=== PATIENT | female | born 1990 | race Caucasian/White ===

== ENCOUNTER 2018-10-17 09:50 | Day surgery (SDC) | payer OTHER ==
[~2018-10-17 09:50] MED LIST: Lactated Ringers 1,000 ML IV SCH; Lidocaine 1%/Sod Bicarbonate in NS 8.4% 1 ML Syringe IDERM PRN; Sodium Chloride 0.9% 10 ML Syringe FLUSH PRN
--- NOTE | 2018-10-17 10:20 | PCM.PREANE ---
Preanesthetic Assessment - Anesthesia/Transfusion/Family Hx Anesthesia History: Prior Anesthesia Without Reaction Family History of Anesthesia Reaction: No Transfusion History: No Prior Transfusion(s) - Review of Systems General: No Symptoms, Other (chronic pain, on naltrexone, ) Pulmonary: Other (smoker, quit 1 year) Gastrointestinal: Abdominal Pain, Hematochezia Neurological: No Symptoms Other: Reports: Diabetes, Depression - Physical Assessment NPO Status Date: 10/16/18 NPO Status Time: 23:00 Pulse: 67 O2 Sat by Pulse Oximetry: 94 Respiratory Rate: 16 Blood Pressure: 157/93 Weight: 111 kg ASA Class: 2 Mental Status: Alert & Oriented x3 Dentition: Reports: Normal Dentition Thyro-Mental Finger Breadths: 3 Mouth Opening Finger Breadths: 3 ROM/Head Extension: Full Lungs: Clear to Auscultation, Normal Respiratory Effort Cardiovascular: Regular Rate, Regular Rhythm - Allergies Allergies/Adverse Reactions: Allergies Allergy/AdvReac Type Severity Reaction Status Date / Time acetaminophen [From Vicodin] Allergy Other Verified 10/16/18 13:36 azithromycin [From Zithromax] Allergy Diarrhea Verified 10/16/18 13:36 esomeprazole magnesium Allergy Acid Reflux Verified 10/16/18 13:36 [From Nexium] hydrocodone [From Vicodin] Allergy Other Verified 10/16/18 13:36 - Blood Blood Available: No Product(s) Available: None - Anesthesia Plan Pre-Op Medication Ordered: None - Acknowledgements Anesthesia Type Planned: MAC Pt an Appropriate Candidate for the Planned Anesthesia: Yes Alternatives and Risks of Anesthesia Discussed w Pt/Guardian: Yes Pt/Guardian Understands and Agrees with Anesthesia Plan: Yes PreAnesthesia Questionnaire Cardiovascular History: Reports: None Respiratory History: Reports: None Genitourinary History: Reports: Other (See Below) Other Genitourinary History: cervix dysplasia AIDS COUNSELOR History: Reports: Endometriosis Neurological History: Reports: None Psychiatric History: Reports: Other (See Below) Other Psychiatric History: chronic pain syndrome Endocrine/Metabolic History: Reports: None Hematologic History: Reports: None Immunologic History: Reports: None Oncologic (Cancer) History: Reports: None Dermatologic History: Reports: Other (See Below) Other Dermatologic History: hidradenitis suppurativa - Past Surgical History Head Surgeries/Procedures: Reports: None HEENT Surgical History: Reports: Oral Surgery, Tonsillectomy Cardiovascular Surgical History: Reports: None Respiratory Surgical History: Reports: None GI Surgical History: Reports: EGD, Other (See Below) Other GI Surgeries/Procedures: gastroscopy Female Surgical History: Reports: LEEP Male Surgical History: Reports: None Endocrine Surgical History: Reports: None Neurological Surgical History: Reports: None Musculoskeletal Surgical History: Reports: Other (See Below) Other Musculoskeletal Surgeries/Procedures:: ganglion cyst Oncologic Surgical History: Reports: None Dermatological Surgical History: Reports: None - SUBSTANCE USE Smoking Status *Q: Former Smoker Recreational Drug Use History: No - HOME MEDS Home Medications: Home Meds Acetaminophen [Tylenol Extra Strength] 1 - 2 tab PO Q6H PRN 10/16/18 [History] Levonorgestrel-Ethin Estradiol [Altavera-28 Tablet] 1 tab PO DAILY 10/16/18 [ History] Naltrexone 1.5 mg PO DAILY 10/16/18 [History] Spironolactone [Aldactone] 25 mg PO BID 10/16/18 [History] metFORMIN [Glucophage] 2,000 mg PO DAILY 10/16/18 [History] - CURRENT (IN HOUSE) MEDS Current Meds: Current Medications Lactated Ringer's (Ringers, Lactated) 1,000 mls @ 125 mls/hr IV ASDIRECTED MARGARET Lidocaine/Sodium Bicarbonate (Buffered Lidocaine 1% In Ns 8.4%) 0.25 ml IDERM ONETIME PRN PRN Reason: Prior to IV Start Sodium Chloride (Saline Flush) 10 ml FLUSH ASDIRECTED PRN PRN Reason: Keep Vein Open
[2018-10-17] MEDS ORDERED: Propofol 200 MG/20 ML SDV ONE ×2 (10:28→11:10)
[2018-10-17] MEDS ORDERED: Midazolam 1 MG/ML 2 ML SDV ONE ×2 (10:28→10:44)
--- NOTE | 2018-10-17 11:23 | PCM.OPNOTE ---
- General Post-Op/Procedure Note Date of Surgery/Procedure: 10/17/18 Operative Procedure(s): diagnostic colonoscopy with biopsy and polypectomy, and hemorrhoid banding Findings: 1. Ascending colon polyp 2. Edematous mucosa in the descending and sigmoid colon 3. Splenic flexure polyp 4. Internal hemorrhoids Pre Op Diagnosis: chronic diarrhea and hematochezia Post-Op Diagnosis: same Anesthesia Technique: MAC Primary Surgeon: Mirtha Joy Anesthesia Provider: Abi Bueno Pathology: 1. Ascending colon polyp 2. Transverse colon biopsies 3. Splenic flexure polyp 4. Descending colon biopsies 5. Sigmoid colon biopsies 6. Rectum biopsies Fluid Replacement, Intraop: 1,000 Output, Urine Amount: 0 EBL in mLs: 0 Complications: None apparent Condition: Good
--- NOTE | 2018-10-17 11:29 | PCM48HPAN ---
Post Anesthesia Note - EVALUATION WITHIN 48HRS OF ANESTHETIC Vital Signs in Normal Range: Yes Patient Participated in Evaluation: Yes Respiratory Function Stable: Yes Airway Patent: Yes Cardiovascular Function Stable: Yes Hydration Status Stable: Yes Pain Control Satisfactory: Yes Nausea and Vomiting Control Satisfactory: Yes Mental Status Recovered: Yes Pulse Rate: 78 SaO2: 98 Resp Rate: 16 Temperature: 36.2 C Blood Pressure: 141/84
[2018-10-17 12:56] VITALS: BP 151/93
--- NOTE | 2018-10-17 16:31 | PCM.PRNOTE ---
- Free Text/Narrative Note: Operative Report Date of Surgery/Procedure: October 17, 2018 Operative Procedure: diagnostic colonoscopy with biopsy and polypectomy, and hemorrhoid banding Pre Op Diagnosis: Chronic diarrhea and hematochezia Post-Op Diagnosis: Same Surgeon: Mirtha Joy Anesthesia Technique: MAC Anesthesia Provider: Abi Bueno CRNA IV Fluid Replacement, Intraop: 1000 cc Output, Urine Amount: 0cc EBL : 0cc Findings: 1. Ascending colon polyp 2. Edematous mucosa in the descending and sigmoid colon 3. Splenic flexure polyp 4. Internal hemorrhoids Specimens: 1. Ascending colon polyp 2. Transverse colon biopsies 3. Splenic flexure polyp 4. Descending colon biopsies 5. Sigmoid colon biopsies 6. Rectum biopsies Indication: The patient is a 28 year-old 80 who presented to the outpatient clinic requesting colonoscopy. The patient has a history of chronic diarrhea as well as recent hematochezia We discussed the procedure of a diagnostic colonoscopy including the polypectomy and biopsy. We also discussed the possibility of doing hemorrhoid banding. Risks of bleeding and perforation were discussed, the patient understood and wished to proceed. Written and consent was obtained Description of the procedure: The patient was brought to the endoscopy suite and placed in the left lateral decubitus position. Appropriate monitors were applied. The patient was given MAC anesthesia. An anorectal examination was performed, revealing an internal hemorrhoid, grade 1. The scope was placed into the rectum and advanced to cecum with minimal difficulty requiring no additional maneuvers. The patients cecum was entered, and the ileocecal valve and appendiceal orifice were identified and normal. At this point, the scope was withdrawn, paying careful attention to the mucosa. The patient had excellent bowel prep, allowing for visualization of 90-95 % of the mucosa. Polyps in the splenic flexure and descending colon were noted, these were removed using cold biopsy forceps. Edema of the mucosa was noted in the descending and sigmoid colon. Due to her chronic diarrhea, biopsies were taken of the mucosa in the transverse colon, descending colon, sigmoid and rectum. These tissue biopsies were taken using cold biopsy forceps. In the rectum, the scope was retroflexed and no abnormalities were noted, except for some hemorrhoidal tissue. The scope was placed back in the lumen and the excess air was aspirated. We then proceeded to insert the anoscope. Two prominent hemorrhoid cushions were appreciated. Rubber bands were placed in 2 locations. The anoscope was then withdrawn. The patient was awakened from MAC anesthesia. The patient tolerated the procedure well. Complications: none apparent Condition: Good, transported to PACU in stable condition Mirtha Joy MD General Surgery
== END 2018-10-17 12:08 | disposition home or self-care (01) ==
LOC: JD.SDS 09:50
PROVIDERS: ATTEND Surgery
DX: K52.9 Noninfective gastroenteritis and colitis, unspecified (principal); K92.1 Melena; K63.5 Polyp of colon; K64.8 Other hemorrhoids; K21.9 Gastro-esophageal reflux disease without esophagitis; E28.2 Polycystic ovarian syndrome; Z79.84 Long term (current) use of oral hypoglycemic drugs; Z79.899 Other long term (current) drug therapy; Z88.1 Allergy status to other antibiotic agents; Z88.5 Allergy status to narcotic agent; Z88.6 Allergy status to analgesic agent; Z87.891 Personal history of nicotine dependence
CPT/HCPCS: 45380; 45398; 81025; J2250; J2704; J7120; 00811

== ENCOUNTER 2019-09-18 13:38 | Emergency (ER) | payer OTHER ==
[2019-09-18 13:50] VITALS: BP 116/81; PULSE 85
--- NOTE | 2019-09-18 14:02 | EDM.PDOC ---
ED HPI GENERAL MEDICAL PROBLEM - General Chief Complaint: Lower Extremity Injury/Pain Stated Complaint: L LEG SWELLING/PAIN Time Seen by Provider: 09/18/19 13:57 Source of Information: Reports: Patient, Family (spouse) History Limitations: Reports: No Limitations - History of Present Illness INITIAL COMMENTS - FREE TEXT/NARRATIVE: 29-year-old female presents the ED with painful left calf. She reports that she first noticed discomfort in the posterior left calf about mid calf 5 days ago. As the week is gone on the pain is gradually increased to the point that she is walking with a definitive limp. Pain on plantarflexion and on dorsiflexion of the ankle. No recent long rides in no past history of DVT. She quit smoking a year ago. She is on oral contraceptive pill for about one year. Pain radiates up slightly along the posterior left thigh. Recent injuries that would've later up. No recent falls or strains to her knowledge. Onset: Gradual Onset Date: 09/14/19 Duration: Day(s):, Constant, Getting Worse, Intermittent (Made worse by walking or weightbearing) Location: Reports: Lower Extremity, Left Quality: Reports: Ache, Throbbing Severity: Moderate Improves with: Reports: Rest Worsens with: Reports: Movement (And weightbearing) Context: Denies: Activity, Exercise, Lifting, Sick Contact, Trauma, Other Associated Symptoms: Reports: No Other Symptoms, Other (Denies any sharp stabbing pleuritic chest pain or shortness of breath. O2 sats are reported heart rate 95%.) Treatments PORTFOLIO ANALYST: Reports: Other (see below) (None.) - Related Data Allergies Allergy/AdvReac Type Severity Reaction Status Date / Time acetaminophen [From Vicodin] Allergy Other Verified 10/16/18 13:36 azithromycin [From Zithromax] Allergy Diarrhea Verified 10/16/18 13:36 esomeprazole magnesium Allergy Acid Reflux Verified 10/16/18 13:36 [From Nexium] hydrocodone [From Vicodin] Allergy Other Verified 10/16/18 13:36 Home Meds: Home Meds Spironolactone [Aldactone] 25 mg PO BID 10/16/18 [History] Levonorgestrel-Ethinyl Estradiol 09/18/19 [History] Rivaroxaban [Xarelto] 15 mg PO BID #42 tablet 09/18/19 [Rx] Past Medical History Cardiovascular History: Reports: None Respiratory History: Reports: None Genitourinary History: Reports: Other (See Below) Other Genitourinary History: cervix dysplasia MEDICAL LANGUAGE SPECIALIST History: Reports: Endometriosis Neurological History: Reports: None Psychiatric History: Reports: Other (See Below) Other Psychiatric History: chronic pain syndrome Endocrine/Metabolic History: Reports: None Hematologic History: Reports: None Immunologic History: Reports: None Oncologic (Cancer) History: Reports: None Dermatologic History: Reports: Other (See Below) Other Dermatologic History: hidradenitis suppurativa - Past Surgical History Head Surgeries/Procedures: Reports: None HEENT Surgical History: Reports: Oral Surgery, Tonsillectomy Cardiovascular Surgical History: Reports: None Respiratory Surgical History: Reports: None GI Surgical History: Reports: Colonoscopy, EGD, Other (See Below) Other GI Surgeries/Procedures: gastroscopy, LEEP, colposcopy Female Surgical History: Reports: LEEP Endocrine Surgical History: Reports: None Neurological Surgical History: Reports: None Musculoskeletal Surgical History: Reports: Other (See Below) Other Musculoskeletal Surgeries/Procedures:: ganglion cyst Oncologic Surgical History: Reports: None Dermatological Surgical History: Reports: None Social & Family History - Family History Family Medical History: Noncontributory - Tobacco Use Smoking Status *Q: Former Smoker Used Tobacco, but Quit: Yes Month/Year Tobacco Last Used: 09/2018 - Caffeine Use Caffeine Use: Reports: Coffee, Soda, Tea - Living Situation & Occupation Living situation: Reports: Single Occupation: Employed Review of Systems - Review of Systems Review Of Systems: See Below Constitutional: Reports: No Symptoms Eyes: Reports: No Symptoms Ears: Reports: No Symptoms Nose: Reports: No Symptoms Mouth/Throat: Reports: No Symptoms Respiratory: Reports: No Symptoms Cardiovascular: Reports: No Symptoms GI/Abdominal: Reports: No Symptoms Genitourinary: Reports: No Symptoms Musculoskeletal: Reports: Other (Pain and minimal swelling left) Skin: Reports: No Symptoms ( lower extremity.) Neurological: Reports: No Symptoms Psychiatric: Reports: No Symptoms ED EXAM, GENERAL - Physical Exam Exam: See Below Exam Limited By: No Limitations General Appearance: Alert, WD/WN, No Apparent Distress, Other (Temperatures 36.1. Pulse 85 in sinus. Respiratory is 16 with O2 sats reportedly at 95%. Is a little lower than I would expect for age 29.) Eye Exam: Bilateral Eye: Normal Inspection Respiratory/Chest: No Respiratory Distress, Lungs Clear, Normal Breath Sounds, No Accessory Muscle Use, Chest Non-Tender Cardiovascular: Normal Peripheral Pulses, Regular Rate, Rhythm, No Edema, No Gallop, No Murmur, No Rub Peripheral Pulses: 2+: Posterior Tibial (L), Posterior Tibial (R), Dorsalis Pedis (L), Dorsalis Pedis (R) Extremities: Normal Inspection, Normal Range of Motion, Pedal Edema, Other ( Trace edema left lower extremity. Pain is localized to the midline of the left calf from the knee to the beginning origin of the Achilles tendon. There is some tenderness in the medial mid belly of the gastrocnemius muscle but nothing on the lateral gastroc muscle. Pain seems to be worsened by plantarflexion versus dorsiflexion. No convincing evidence of DVT clinically other than the fact that the pain is in the midline of the calf and no significant findings on palpation of the gastrocnemius muscles.) Neurological: Oriented, CN II-XII Intact, Normal Cognition, Normal Gait Psychiatric: Normal Affect, Normal Mood Skin Exam: Warm, Dry, Intact, Normal Color, No Rash Course - Vital Signs Last Recorded V/S: Last Vital Signs Temp 36.1 C 09/18/19 13:48 Pulse 85 09/18/19 13:48 Resp 16 09/18/19 13:48 BP 116/81 09/18/19 13:48 Pulse Ox 95 09/18/19 13:48 - Orders/Labs/Meds Orders: Active Orders 24 hr Category Date Time Status VL Duplex Lwr Ext Veins Ltd Lt [US] Stat Exams 09/18/19 13:58 Taken Labs: Laboratory Tests 09/18/19 09/18/19 Range/Units 14:23 14:23 WBC 7.99 (3.98-10.04) K/mm3 RBC 4.48 (3.98-5.22) M/mm3 Hgb 13.9 (11.2-15.7) gm/dl Hct 40.3 (34.1-44.9) % MCV 90.0 (79.4-94.8) fl MCH 31.0 (25.6-32.2) pg MCHC 34.5 (32.2-35.5) g/dl RDW Std Deviation 41.4 (36.4-46.3) fL Plt Count 257 (182-369) K/mm3 MPV 9.8 (9.4-12.3) fl Neut % (Auto) 62.3 (34.0-71.1) % Lymph % (Auto) 23.7 (19.3-51.7) % [place] % (Auto) 9.4 (4.7-12.5) % Eos % (Auto) 3.9 (0.7-5.8) Baso % (Auto) 0.4 (0.1-1.2) % Neut # (Auto) 4.99 (1.56-6.13) K/mm3 Lymph # (Auto) 1.89 (1.18-3.74) K/mm3 [place] # (Auto) 0.75 H (0.24-0.36) K/mm3 Eos # (Auto) 0.31 (0.04-0.36) K/mm3 Baso # (Auto) 0.03 (0.01-0.08) K/mm3 PT 10.9 (9.7-12.0) SECONDS INR 1.00 APTT 25 (22-31) SECONDS D-Dimer, Quantitative 4.21 H (0.19-0.50) mg/L - Radiology Interpretation Free Text/Narrative:: 29-year-old female presents to the ED for evaluation of left lower extremity or mid calf pain. This been present since Saturday which is 5 days ago and is gradually worsening to the point that she is walking with a limp. Injuries. No recent travel history. Treated DVT. Denies any pulmonary symptoms. Tenderness elicited on midline of the left calf particularly at the origin of the Achilles tendon. Some tenderness throughout the mid belly of the medial gastrocnemius muscle without palpable hematoma. Is very minimal trace swelling in the left lower extremity. There is no pain along the greater saphenous vein in the medial left thigh. Plan Doppler ultrasound left lower extremity to be done. She will have routine lab work including a d-dimer and coags. - Re-Assessments/Exams Free Text/Narrative Re-Assessment/Exam: 09/18/19 14:48 White blood cell count is 7.99. Auto differential 62% neutrophils. Hemoglobin is 13.9 with hematocrit of 40.3. Platelet count 57,000 09/18/19 15:07 PT is 10.9 with an INR of 1.00. PTT is 25. D-dimer is elevated at 4.21 09/18/19 15:08 Doppler ultrasound is positive for occlusion of the peroneal vein in the posterior tibial vein. As the findings with the patient and her . Advised that she probably needs to go off control pills. She is on her last pill of this current 3 month cycle. He'll follow up with Dianna Vasques in 3 weeks' time. In the meantime she will be started on Xarelto 15 mg twice a day for 3 weeks and then 20 mg once daily to complete a three-month course of treatment. Note further lab tests have been ordered as send notes to see if there is a genetic predisposition to hyper coaguable state. Departure - Departure Time of Disposition: 15:22 Disposition: Home, Self-Care 01 Condition: Fair Clinical Impression: DVT (deep venous thrombosis) Qualifiers: DVT location: lower extremity Affected thrombotic vein of extremity: peroneal Chronicity: acute Laterality: left Qualified Code(s): I82.452 - Acute embolism and thrombosis of left peroneal vein - Discharge Information *PRESCRIPTION DRUG MONITORING PROGRAM REVIEWED*: Not Applicable *COPY OF PRESCRIPTION DRUG MONITORING REPORT IN PATIENT SARMAD: Not Applicable Prescriptions: Rivaroxaban [Xarelto] 15 mg PO BID #42 tablet Instructions: Deep Vein Thrombosis, Venous Thromboembolism Prevention Referrals: Dianna Vasques PA-C [Primary Care Provider] - Forms: ED Department Discharge Additional Instructions: Evaluation the emergency room today in regards to gradually worsening pain in the left mid calf rating up towards the left lateral thigh today. Has been gradually worsening over the last 5 days. No past history of deep venous thrombosis and no real reason clinically to have developed a clot. However d- dimer test came back positive at 4.21 and normal should be less than 1. Left lower extremity revealed a clot within the left peroneal vein and the left posterior tibial vein in your lower extremity. You are to rest the leg is much as possible for about 5 days. This means no excessive walking jogging running etc. Walking around the home is okay. Chest elevating the leg is much as possible when at home. Heating pad to the back of the calf for one half hour 4 times a day for the next week would help the clot breakdown. I have sent away lab tests to look for genetic reasons for possible hypercoagulation problems. He should be back in about 8 days. They may be delayed by the holiday. Just following up with Dianna Vasques in 2-3 weeks' time for these results. In the meantime I do suggest going off the oral control pill as it is highly suspect as a cause of causing the DVT. Medication is to be Xarelto--15 mg by mouth with food twice daily for 21 days and then switch to 20 mg tablet once daily with food to complete 3 months of therapy. Prescriptions for all 3 months have been provided. Return to medical care. Develop any sudden she signs of shortness of breath or acute sharp stabbing pain in her chest or coughing up blood. Of note these events are highly unlikely to happen. Sepsis Event Note - Evaluation Sepsis Screening Result: No Definite Risk - Focused Exam Vital Signs: Vital Signs Temp Pulse Resp BP Pulse Ox 09/18/19 13:48 36.1 C 85 16 116/81 95 Date Exam was Performed: 09/18/19 Time Exam was Performed: 15:07 - My Orders Last 24 Hours: My Active Orders 09/18/19 13:58 VL Duplex Lwr Ext Veins Ltd Lt [US] Stat - Assessment/Plan Last 24 Hours: My Active Orders 09/18/19 13:58 VL Duplex Lwr Ext Veins Ltd Lt [US] Stat
--- NOTE | 2019-09-18 15:08 | US ---
Left lower extremity deep venous ultrasound: Duplex and color flow imaging was obtained of the left common femoral, proximal greater saphenous, superficial femoral, popliteal, posterior tibia and peroneal veins. Right common femoral vein was also evaluated. Findings: Posterior tibial and peroneal veins are occluded. Other more proximal veins show normal phasic flow, augmentation and compression. Impression: 1. Occluded peroneal and posterior tibial veins. 2. Other portions of the deep veins of the left lower extremity and right common appear patent. Diagnostic code #5 This report was dictated in [place] Standard Time
== END 2019-09-18 15:43 | disposition home or self-care (01) ==
LOC: JD.ED 13:38
DX: I82.452 Acute embolism and thrombosis of left peroneal vein (principal); I82.442 Acute embolism and thrombosis of left tibial vein; Z88.1 Allergy status to other antibiotic agents; Z88.6 Allergy status to analgesic agent; Z88.5 Allergy status to narcotic agent; Z87.891 Personal history of nicotine dependence; Z79.899 Other long term (current) drug therapy; Z79.01 Long term (current) use of anticoagulants
CPT/HCPCS: 36415; 81241; 85025; 85300; 85303; 85306; 85379; 85610; 85730; 86147; 93971-26-LT; 93971-LT; 99284; 99284-25

== ENCOUNTER 2019-09-19 10:36 | Emergency (ER) | payer OTHER ==
[2019-09-19] MEDS ORDERED: Sodium Chloride 0.9% 1,000 ML IV SCH (11:00)
[2019-09-19] MEDS: Sodium Chloride 0.9% 10 ML Syringe FLUSH PRN ×2 (11:04→11:43)
[2019-09-19] MEDS ORDERED: Iopamidol 755 Mg/ML 100 ML Bottle IVPUSH ONE (11:11)
[2019-09-19] MEDS ORDERED: Sodium Chloride 0.9% 100 ML IV SCH (11:15)
--- NOTE | 2019-09-19 11:17 | EDM.PDOC ---
ED HPI GENERAL MEDICAL PROBLEM - General Chief Complaint: Cardiovascular Problem Stated Complaint: SOB/PAIN WHEN BREATHING Time Seen by Provider: 09/19/19 10:56 Source of Information: Reports: Patient, RN Notes Reviewed - History of Present Illness INITIAL COMMENTS - FREE TEXT/NARRATIVE: 29-year-old female comes in with anterior and left-sided chest discomfort that started last evening. The discomfort last evening was very mild and now this morning the discomfort is more bothersome but still not severe. Escher and a tightness that is worse with deep breathing. Concern is she was just diagnosed with DVT of her left lower leg yesterday here in the ED. She had started having discomfort of the left lower leg about 5 days ago and ultrasound of her left lower extremity yesterday confirmed DVT, see radiology report for details. She did take her first dose of Zarrella toe this morning a few hours ago. Have history of prior DVT or other blood clots abnormalities. No recent surgery or other known medical problems. Left Chest Pain Score (Numeric/FACES): 4 - Related Data Allergies Allergy/AdvReac Type Severity Reaction Status Date / Time acetaminophen [From Vicodin] Allergy Other Verified 09/19/19 10:44 hydrocodone [From Vicodin] Allergy Other Verified 09/19/19 10:44 azithromycin [From Zithromax] AdvReac Diarrhea Verified 09/19/19 11:16 esomeprazole magnesium AdvReac Acid Reflux Verified 09/19/19 11:16 [From Nexium] Home Meds: Home Meds Spironolactone [Aldactone] 25 mg PO BID 10/16/18 [History] Levonorgestrel-Ethinyl Estradiol 09/18/19 [History] Rivaroxaban [Xarelto] 15 mg PO BID #42 tablet 09/18/19 [Rx] Past Medical History Cardiovascular History: Reports: None Respiratory History: Reports: None Genitourinary History: Reports: Other (See Below) Other Genitourinary History: cervix dysplasia [employer] History: Reports: Endometriosis Neurological History: Reports: None Psychiatric History: Reports: Other (See Below) Other Psychiatric History: chronic pain syndrome Endocrine/Metabolic History: Reports: None Hematologic History: Reports: None Immunologic History: Reports: None Oncologic (Cancer) History: Reports: None Dermatologic History: Reports: Other (See Below) Other Dermatologic History: hidradenitis suppurativa - Past Surgical History Head Surgeries/Procedures: Reports: None HEENT Surgical History: Reports: Oral Surgery, Tonsillectomy Cardiovascular Surgical History: Reports: None Respiratory Surgical History: Reports: None GI Surgical History: Reports: Colonoscopy, EGD, Other (See Below) Other GI Surgeries/Procedures: gastroscopy, LEEP, colposcopy Female Surgical History: Reports: LEEP Endocrine Surgical History: Reports: None Neurological Surgical History: Reports: None Musculoskeletal Surgical History: Reports: Other (See Below) Other Musculoskeletal Surgeries/Procedures:: ganglion cyst Oncologic Surgical History: Reports: None Dermatological Surgical History: Reports: None Social & Family History - Family History Family Medical History: Noncontributory - Tobacco Use Smoking Status *Q: Former Smoker Used Tobacco, but Quit: Yes Month/Year Tobacco Last Used: 2017 - Caffeine Use Caffeine Use: Reports: Coffee, Soda, Tea - Living Situation & Occupation Living situation: Reports: Single Occupation: Employed ED ROS GENERAL - Review of Systems Review Of Systems: See Below Constitutional: Denies: Fever, Chills, Diaphoresis HEENT: Reports: No Symptoms Respiratory: Reports: Pleuritic Chest Pain. Denies: Shortness of Breath, Cough , Hemoptysis Cardiovascular: Reports: Chest Pain GI/Abdominal: Denies: Abdominal Pain, Nausea, Vomiting Musculoskeletal: Reports: Leg Pain Skin: Reports: No Symptoms Neurological: Reports: No Symptoms ED EXAM, GENERAL - Physical Exam Exam: See Below General Appearance: Alert, No Apparent Distress Throat/Mouth: Normal Inspection Head: Atraumatic Neck: Supple Respiratory/Chest: No Respiratory Distress, Lungs Clear, Normal Breath Sounds Cardiovascular: Regular Rate, Rhythm GI/Abdominal: Non-Tender Extremities: Leg Pain (mild tenderness L mid calf ). No: Increased Warmth, Redness Neurological: Alert, Oriented, No Motor/Sensory Deficits Skin Exam: Warm, Dry, Normal Color EKG INTERPRETATION EKG Date: 09/19/19 Rhythm: NSR P-Wave: Present QRS: Normal ST-T: Normal QT: Normal Course - Vital Signs Last Recorded V/S: Last Vital Signs Temp 96.6 F 09/19/19 10:44 Pulse 88 09/19/19 10:44 Resp 20 09/19/19 10:44 BP 134/82 09/19/19 10:44 Pulse Ox 99 09/19/19 10:44 - Orders/Labs/Meds Orders: Active Orders 24 hr Category Date Time Status EKG 12 Lead [EKG Documentation Completion] [] STAT Care 09/19/19 10:58 Active Peripheral IV Care [RC] . DIRECTED Care 09/19/19 10:58 Active Sodium Chloride 0.9% [Normal Saline] 1,000 ml Med 09/19/19 11:00 Active IV ONETIME Sodium Chloride 0.9% [Normal Saline] 100 ml Med 09/19/19 11:15 Active IV ASDIRECTED Sodium Chloride 0.9% [Saline Flush] Med 09/19/19 10:58 Active 10 ml FLUSH ASDIRECTED PRN Peripheral IV Insertion Adult [OM.PC] Stat Oth 09/19/19 10:57 Ordered Medication Orders Sodium Chloride (Normal Saline) 1,000 mls @ 999 mls/hr IV ONETIME MARGARET Stop: 09/19/19 14:00 Last Admin: 09/19/19 11:04 Dose: 999 mls/hr Sodium Chloride (Normal Saline) 100 mls @ 75 mls/hr IV ASDIRECTED MARGARET Stop: 09/19/19 14:00 Last Admin: 09/19/19 11:43 Dose: 75 mls/hr Sodium Chloride (Saline Flush) 10 ml FLUSH ASDIRECTED PRN PRN Reason: Keep Vein Open Stop: 09/19/19 14:00 Last Admin: 09/19/19 11:43 Dose: 10 ml Admin: 09/19/19 11:04 Dose: 10 ml Labs: Laboratory Tests 09/19/19 Range/Units 11:00 Sodium 142 (136-145) mEq/L Potassium 3.8 (3.5-5.1) mEq/L Chloride 104 (98-107) mEq/L Carbon Dioxide 26 (21-32) mEq/L Anion Gap 15.8 H (5-15) BUN 16 (7-18) mg/dL Creatinine 1.1 H (0.55-1.02) mg/dL Est Cr Clr Drug Dosing 67.90 mL/min Estimated GFR (MDRD) 59 (>60) mL/min BUN/Creatinine Ratio 14.5 (14-18) Glucose 112 H (74-106) mg/dL Calcium 9.0 (8.5-10.1) mg/dL Total Bilirubin 0.3 (0.2-1.0) mg/dL AST 18 (15-37) U/L ALT 34 (14-59) U/L Alkaline Phosphatase 43 L (46-116) U/L Total Protein 8.4 H (6.4-8.2) g/dl Albumin 3.6 (3.4-5.0) g/dl Globulin 4.8 gm/dL Albumin/Globulin Ratio 0.8 L (1-2) Meds: Medications Generic Name Dose Route Start Last Admin Trade Name Freq PRN Reason Stop Dose Admin Sodium Chloride 1,000 mls @ 999 mls/hr 09/19/19 11:00 09/19/19 11:04 Normal Saline IV 09/19/19 14:00 999 mls/hr ONETIME MARGARET Administration Sodium Chloride 100 mls @ 75 mls/hr 09/19/19 11:15 09/19/19 11:43 Normal Saline IV 09/19/19 14:00 75 mls/hr ASDIRECTED MARGARET Administration Sodium Chloride 10 ml 09/19/19 10:58 09/19/19 11:43 Saline Flush FLUSH 09/19/19 14:00 10 ml ASDIRECTED PRN Administration Keep Vein Open Discontinued Medications Generic Name Dose Route Start Last Admin Trade Name Freq PRN Reason Stop Dose Admin Iopamidol 100 ml 09/19/19 11:11 09/19/19 11:43 [id number] (76%) IVPUSH 09/19/19 11:12 100 ml ONETIME ONE Administration - Re-Assessments/Exams Free Text/Narrative Re-Assessment/Exam: 09/19/19 12:46. CT pulmonary angiogram shows filling defects within segmental and subsegmental branches of both lower lobe pulmonary arteries compatible with pulmonary embolism. See Radiology report for details. She continues to be in no respiratory distress. She is not short of breath. She currently has chest discomfort only with deep breathing. She is not tachycardic, tachypnea make or hypoxic. I do feel it is safe for her to go home, continue the current therapy of Xarelto prescribed yesterday and started this morning. I have emphasized the need for careful close clinic follow-up and to return to ED if symptoms do worsen in any way. Discharge instructions as documented. Departure - Departure Time of Disposition: 12:38 Disposition: Home, Self-Care 01 Condition: Fair Clinical Impression: Pulmonary embolism DVT (deep venous thrombosis) Qualifiers: DVT location: lower extremity Affected thrombotic vein of extremity: peroneal Chronicity: acute Laterality: left Qualified Code(s): I82.452 - Acute embolism and thrombosis of left peroneal vein Instructions: Pulmonary Embolism Referrals: Dianna Vasques PA-C [Primary Care Provider] - Forms: ED Department Discharge Additional Instructions: Continue the xarelto 15 twice daily for 3 weeks as prescribed and than go to the 20 mg daily as prescribed. Try see Dianna or one of the providers at [facility] Saturday or Saturday for recheck, call Saturday AM for appt., Return to ED as needed if symptoms worsening in any way. Sepsis Event Note - Evaluation Sepsis Screening Result: No Definite Risk - Focused Exam Vital Signs: Vital Signs Temp Pulse Resp BP Pulse Ox 09/19/19 10:44 96.6 F 88 20 134/82 99 Date Exam was Performed: 09/19/19 Time Exam was Performed: 12:46 - My Orders Last 24 Hours: My Active Orders 09/19/19 10:57 Peripheral IV Insertion Adult [OM.PC] Stat 09/19/19 10:58 EKG 12 Lead [EKG Documentation Completion] [RC] STAT Peripheral IV Care [RC] . DIRECTED Sodium Chloride 0.9% [Saline Flush] 10 ml FLUSH ASDIRECTED PRN 09/19/19 11:00 Sodium Chloride 0.9% [Normal Saline] 1,000 ml IV ONETIME 09/19/19 11:15 Sodium Chloride 0.9% [Normal Saline] 100 ml IV ASDIRECTED - Assessment/Plan Last 24 Hours: My Active Orders 09/19/19 10:57 Peripheral IV Insertion Adult [OM.PC] Stat 09/19/19 10:58 EKG 12 Lead [EKG Documentation Completion] [RC] STAT Peripheral IV Care [RC] . DIRECTED Sodium Chloride 0.9% [Saline Flush] 10 ml FLUSH ASDIRECTED PRN 09/19/19 11:00 Sodium Chloride 0.9% [Normal Saline] 1,000 ml IV ONETIME 09/19/19 11:15 Sodium Chloride 0.9% [Normal Saline] 100 ml IV ASDIRECTED
--- NOTE | 2019-09-19 11:53 | CT ---
CT chest Technique: Multiple axial sections through the chest were obtained. Intravenous contrast was utilized. Study has been performed as pulmonary anagram protocol. Findings: Filling defects are noted within the segmental and subsegmental branches of both lower lobe pulmonary arteries compatible with pulmonary embolism. Small left-sided pleural effusion is noted as well as mild left basilar atelectasis. Visualized upper abdominal structures show no discrete abnormality. No mediastinal mass or adenopathy is seen. No axillary adenopathy is seen. No other acute parenchymal change is seen within the lungs. Impression: 1. Pulmonary emboli as noted above. 2. Small left-sided pleural effusion and mild left basilar atelectasis. Diagnostic code #5 This report was dictated in [place] Standard Time
[2019-09-19 12:55] VITALS: BP 123/79; PULSE 84
== END 2019-09-19 12:54 | disposition home or self-care (01) ==
LOC: JD.ED 10:36
DX: I26.99 Other pulmonary embolism without acute cor pulmonale (principal); I82.452 Acute embolism and thrombosis of left peroneal vein; Z88.6 Allergy status to analgesic agent; Z79.899 Other long term (current) drug therapy
CPT/HCPCS: 36415; 71275; 80053; 93005; 96360; 99285; J7030; J7050; Q9967; 93010; 99284